=== PATIENT | female | born 1945 | race Caucasian/White ===

== ENCOUNTER 2020-04-26 09:47 | Outpatient (CLI) | payer MEDICARE, OTHER, SELFPAY ==
--- NOTE | ~2020-04-26 | DEXA_ITS ---
BMD(1) Young-Adult(2) Age-Matched(3) Region (g/cm2) T-score Z-score WHO Classification L1 0.887 -2.1 -0.3 Osteopenia L2 0.828 -3.2 -1.4 Osteoporosis L3 1.003 -1.7 0.0 Osteopenia L4 0.993 -1.8 0.0 Osteopenia L1-L4 0.936 -2.1 -0.4 Osteopenia Trend: L1-L4 Change vs Change vs Measured Age BMD(1) Baseline Previous Date [age]) (g/cm2) (%) (%) 04/26/2020 [age] 0[age]936 baseline - 1 - Statistically 68% of repeat scans fall within 1SD (+- 0.010 g/cm2 for AP Spine L1-L4) 2 - [place] (Combined NHANES (ages 20-30) / iSuppli (ages 20-40)) AP Spine Reference Population (v112) 3 - Matched for Age, Weight (females 25-100 kg), Ethnic 11 - World Health Organization - Definition of Osteoporosis and Osteopenia for Women: Normal = T-score at or above -1.0 SD; Osteopenia = T-score between -1.0 and -2.5 SD; Osteoporosis = T-score at or below -2.5 SD; (WHO definitions only apply when a young healthy Women reference database is used to determine T-scores.) Printed: 04/26/2020 10:26:59 AM (13.60)76:3.00:50.00:12.0 0.00:10.50 0.60x1.05 21.1:%Fat=41.2% 0.00:0.00 0.00:0.00 Filename: [email or web address] Scan Mode: Standard;OneScan 37.0 [employer], [employer] [id number] BMD(1) Young-Adult(2,7) Age-Matched(3) Region (g/cm2) T-score Z-score WHO Classification Neck Left 0.759 -2.0 -0.2 Osteopenia Right 0.747 -2.1 -0.3 Osteopenia Mean 0.753 -2.0 -0.2 Osteopenia Difference 0.012 0.1 0.1 - Total Left 0.840 -1.3 0.3 Osteopenia Right 0.771 -1.9 -0.3 Osteopenia Mean 0.805 -1.6 0.0 Osteopenia Difference 0.069 0.5 0.5 - Hip [place] Length Comparison (mm) (Right = 97.7 mm) (Mean = 90.0 mm) (Left = 102.2 mm) Trend: Total Mean Change vs Change vs Measured Age BMD(1) Baseline Previous Date [age]) (g/cm2) (%) (%) 04/26/2020 74.6 0[age]805 baseline - 1 - Statistically 68% of repeat scans fall within 1SD (+- 0.010 g/cm2 for DualFemur Total) 2 - [place] (Combined NHANES (ages 20-30) / [employer]Suppli (ages 20-40)) Femur Reference Population (v112) 3 - Matched for Age, Weight (females 25-100 kg), Ethnic 7 - DualFemur Total T-score difference is 0.5. Asymmetry is None. 11 - World Health Organization - Definition of Osteoporosis and Osteopenia for Women: Normal = T-score at or above -1.0 SD; Osteopenia = T-score between -1.0 and -2.5 SD; Osteoporosis = T-score at or below -2.5 SD; (WHO definitions only apply when a young healthy Women reference database is used to determine T-scores.) Printed: 04/26/2020 10:26:59 AM (13.60); Filename: [email or web address]; Right Femur; 18.0:%Fat=35.6%; Neck Angle (deg)= 59; Scan Mode: Standard 37.0 uGy; Left Femur; 17.2:%Fat=35.0%; Neck Angle (deg)= 65; Scan Mode: Standard 37.0 uGy [employer] [id number] Dear Eros Pena, Your patient Leigh Pritchett completed a BMD test on 04/26/2020 using the Cytoguide DXA System (analysis version: 13.60) manufactured by [employer]. The following summarizes the results of our evaluation. PATIENT BIOGRAPHICAL: Name: Leigh Pritchett Date: 1945 Height: 50.0 in. Gender: Female
== END 2020-04-26 09:48 | disposition home or self-care (01) ==
PROVIDERS: PCP Family Medicine; Visit Provider Family Medicine
DX: M81.0 Age-related osteoporosis without current pathological fracture (principal)
CPT/HCPCS: 77080